=== PATIENT | female | born 1950 | race Two or more races ===

== ENCOUNTER 2017-11-29 15:53 | Inpatient (IN) | payer OTHER ==
[~2017-11-29] VITALS: Ht 152.4 cm; Wt 64.9 kg
[2017-12-11] MEDS ORDERED: DIGOX250 MCG PO (09:18)
[2017-12-11] MEDS ORDERED: ATENOLOL50 MG PO (09:23)
[2018-01-02] MEDS ORDERED: ASA-EC81 MG PO (10:40)
[2018-01-03] MEDS ORDERED: DUI500 PO (10:50)
[2018-01-03] MEDS ORDERED: PERCOCET 5-3251 EACH PO (10:50)
[2018-01-03] MEDS ORDERED: ELIQUIS2.5 MG PO (10:50)
== END 2018-01-03 15:28 | DRG 470 ==
LOC: SURH 12-18 07:00 → O/R 01-01 06:16 → SURH 01-01 06:16
PROVIDERS: Orthopaedic Surgery
PROC: 0MNN0ZZ Release Right Knee Bursa and Ligament, Open Approach (ICD-10-PCS; 2018-01-01)
PROC: 4A12X4Z Monitoring of Cardiac Electrical Activity, External Approach (ICD-10-PCS; 2018-01-01)
PROC: 0SRC0J9 Replacement of Right Knee Joint with Synthetic Substitute, Cemented, Open Approach (ICD-10-PCS; principal; 2018-01-01 07:00)
DX: M17.11 Unilateral primary osteoarthritis, right knee (principal); D62 Acute posthemorrhagic anemia; E11.9 Type 2 diabetes mellitus without complications; I11.0 Hypertensive heart disease with heart failure; M81.0 Age-related osteoporosis without current pathological fracture; I50.89 Other heart failure; I49.8 Other specified cardiac arrhythmias

== ENCOUNTER 2024-07-10 07:15 | Inpatient (IN) | payer OTHER ==
[~2024-07-10] VITALS: Ht 152.4 cm; Wt 68.0 kg
[~2024-07-10 07:15] MED LIST: ASA-EC81 MG PO; ATENOLOL50 MG PO; DIGOX250 MCG PO; DUI500 PO; ELIQUIS2.5 MG PO; PERCOCET 5-3251 EACH PO
[2024-07-10] MEDS ORDERED: COZAAR25 MG PO (08:33)
[2024-07-10] MEDS ORDERED: PRILOSEC OTC20 MG (08:34)
[2024-07-10 08:39] VITALS: BP 151/81
[2024-07-10 08:53] LABS: HEMATOCRIT 36.9 % (36.0-45.00); HEMOGLOBIN 12.6 g/dL (12.0-15.00); MEAN CORPUSCULAR HEMOGLOBIN 32.1 pg (27.00-32.0); MEAN CORPUSCULAR HGB CONC 34.1 g/dl (32.0-36.0); RED BLOOD COUNT 3.92 M/uL (4.00-6.00); RED CELL DISTRIBUTION WIDTH 13.1 % (11.5-14.5)
[2024-07-10 08:55] LABS: PLATELET COUNT 107 K/uL (150-450)
[2024-07-10 09:12] LABS: PH,URINE 5.5 (5.0-8.0); URINE APPEARANCE Clear; URINE BILIRRUBIN Negative (NEGATIVE); URINE BLOOD Negative; URINE COLOR Yellow; URINE KETONE Negative (NEGATIVE); URINE LEUKOCYTE Negative; URINE NITRATE Negative; URINE PROTEIN Negative (NEGATIVE); URINE UROBILINOGEN 0.2 E.U./dl
[2024-07-10 09:16] LABS: URINE BACTERIA 69.7 uL (0.0-1933); URINE EPITHELIAL CELLS 6.6 uL (0.0-38.8)
[2024-07-10 09:17] LABS: PARTIAL THROMBOPLASTIN TIME 26.1 SECONDS (22.0-34.0)
[2024-07-10 09:21] LABS: PROTHROMBIN TIME 10.8 SECONDS (9.0-11.5)
[2024-07-10 09:22] LABS: INR 0.99
[2024-07-10 09:23] LABS: URINE GLUCOSE >=1000 MG/DL (NEGATIVE); URINE RBC 1.3 uL (0.0-20.8); URINE WBC 1.5 uL (0.0-23.2)
[2024-07-10 09:35] LABS: ALBUMIN 3.9 gm/dL (3.4-5.0); BILIRUBIN TOTAL 0.5 mg/dL (0.3-1.2); CALCIUM 9.4 mg/dL (8.5-10.1); CHOL HDL RATIO 5.4 (0-5.0); CREATININE SERUM 1.11 mg/dL (0.55-1.02); GFR 47.92; GLOBULINA 3.6 G/DL (2.4-3.5); POTASSIUM 4.16 mEq/L (3.5-5.1); TOTAL PROTEIN 7.5 gm/dL (6.4-8.2)
[2024-07-10 13:32] LABS: RH POSITIVE
[2024-07-15] MEDS ORDERED: TRANEXAMIC ACID 100MG/1ML (1000MG) AMPUL IV ONE ×2 (10:15)
[2024-07-15] MEDS ORDERED: POVIDONE-IODINE 118 ML BOTT TOP ONE (10:15)
[2024-07-15] MEDS ORDERED: CEFAZOLIN SODIUM 1,000 MG VIAL IV ONE (10:15)
[2024-07-15] MEDS ORDERED: KETOROLAC TROMETHAMINE 60 MG VIAL IM ONE (10:15)
[2024-07-15] MEDS ORDERED: MORPHINE SULFATE 4 MG/ML VIAL IV ONE ×3 (10:15→12:55)
[2024-07-15] MEDS ORDERED: hydrALAZINE HCL 20 MG VIAL IV ONE (11:45)
[2024-07-15] MEDS ORDERED: SODIUM CHLORIDE 0.45 % 1,000 ML IV SCH (12:00)
[2024-07-15] MEDS ORDERED: ONDANSETRON HCL 2 MG/ML VIAL IV PRN (12:00)
[2024-07-15] MEDS ORDERED: ACETAMINOPHEN 500 MG GEL..CAP PO SCH (12:00)
[2024-07-15] MEDS ORDERED: OxyCODONE HCL 5 MG TABLET (ROXICODONE) PO PRN (12:00)
[2024-07-15] MEDS ORDERED: MORPHINE SULFATE 4 MG/ML CARTRIDGE IV PRN (12:00)
[2024-07-15] MEDS ORDERED: MEPERIDINE HCL 25 MG/ML AMPUL IV ONE (14:30)
[2024-07-15] MEDS ORDERED: GABAPENTIN 300 MG CAPSULE PO SCH (17:00)
[2024-07-15] MEDS ORDERED: CEFAZOLIN SODIUM 1,000 MG VIAL IV SCH (17:00)
[2024-07-15 18:13] VITALS: BP 146/54; O2SAT 95
[2024-07-15] MEDS ORDERED: FAMOtidine 20 MG TABLET PO SCH (21:00)
[2024-07-16 00:35] VITALS: BP 133/55; O2SAT 98
[2024-07-16 06:56] LABS: HEMATOCRIT 30.2 % (36.0-45.00); HEMOGLOBIN 10.6 g/dL (12.0-15.00); MEAN CELL VOLUME 93.2 fL (80.00-100.00); MEAN CORPUSCULAR HEMOGLOBIN 32.8 pg (27.00-32.0); MEAN CORPUSCULAR HGB CONC 35.2 g/dl (32.0-36.0); PLATELET COUNT 83 K/uL (150-450); RED BLOOD COUNT 3.24 M/uL (4.00-6.00); RED CELL DISTRIBUTION WIDTH 13.5 % (11.5-14.5)
[2024-07-16] MEDS ORDERED: ELIQUIS2.5 MG PO (07:50)
[2024-07-16] MEDS ORDERED: DUI500 PO (07:50)
[2024-07-16] MEDS ORDERED: PERCOCET 5-3251 EACH PO (07:50)
[2024-07-16 08:00] VITALS: BP 164/55; O2SAT 97
[2024-07-16] MEDS ORDERED: SENNOSIDES 1 TAB TABLET PO SCH (09:00)
[2024-07-16] MEDS ORDERED: ATENOLOL 50 MG TABLET PO SCH (09:00)
[2024-07-16] MEDS ORDERED: APIXABAN 2.5 MG TABLET PO SCH (09:00)
[2024-07-16] MEDS ORDERED: DIGOXIN 0.25 MG TABLET PO SCH (09:00)
[2024-07-16] MEDS ORDERED: LOSARTAN POTASSIUM 25 MG TABLET PO SCH (09:00)
[2024-07-16 16:07] VITALS: BP 149/60; O2SAT 96
[2024-07-16] MEDS ORDERED: Cyanocobalamin/Mecobalamin 1 TAB.SL SL SCH (17:00)
[2024-07-16] MEDS ORDERED: SOD FERRIC GLUC COMPLX/SUCROSE 62.5 MG/5 ML AMPUL IV SCH (17:00)
[2024-07-16] MEDS ORDERED: VITAMIN B COMPLEX 1 EACH PO SCH (17:00)
[2024-07-17] VITALS: BP 156/60; O2SAT 98
[2024-07-17] MEDS ORDERED: IRON FUM,PS/FOLIC ACID/VITC/B3 1 CAP CAPSULE PO SCH (09:00)
[2024-07-17 11:10] VITALS: BP 132/52; O2SAT 98
== END 2024-07-17 18:52 | DRG 470 ==
LOC: O/R 07-15 07:11 → SURH 07-15 07:15 → SURG 07-15 16:15
PROVIDERS: ADMIT Orthopaedic Surgery; ATTEND Orthopaedic Surgery
PROC: 0MNP0ZZ Release Left Knee Bursa and Ligament, Open Approach (ICD-10-PCS; 2024-07-15)
PROC: 0QUF0JZ Supplement Left Patella with Synthetic Substitute, Open Approach (ICD-10-PCS; 2024-07-15)
PROC: 0SRD0JZ Replacement of Left Knee Joint with Synthetic Substitute, Open Approach (ICD-10-PCS; principal; 2024-07-15 11:45)
DX: M17.0 Bilateral primary osteoarthritis of knee (principal); M80.052A Age-related osteoporosis with current pathological fracture, left femur, initial encounter for fracture; D62 Acute posthemorrhagic anemia; M22.12 Recurrent subluxation of patella, left knee; E11.9 Type 2 diabetes mellitus without complications; I49.9 Cardiac arrhythmia, unspecified; I50.9 Heart failure, unspecified; D69.6 Thrombocytopenia, unspecified; Z96.653 Presence of artificial knee joint, bilateral